=== PATIENT | male | born 1955 | race Caucasian/White ===

== ENCOUNTER 2017-08-05 07:14 | Emergency (ER) | payer BC ==
[2017-08-05 07:37] VITALS: BP 157/97
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
== END 2017-08-05 09:00 | disposition home or self-care (01) ==
LOC: UCEAST 07:14
DX: S20.219A Contusion of unspecified front wall of thorax, initial encounter (principal); M94.0 Chondrocostal junction syndrome [Tietze]; V27.4XXA Motorcycle driver injured in collision with fixed or stationary object in traffic accident, initial encounter; Y93.89 Activity, other specified; Y92.410 Unspecified street and highway as the place of occurrence of the external cause; I48.91 Unspecified atrial fibrillation; I10 Essential (primary) hypertension
CPT/HCPCS: 71020; 93005; 99211; G0463

== ENCOUNTER 2020-02-23 08:30 | Emergency (ER) | payer BC ==
--- OUTSIDE RECORDS SUMMARY | 2020-02-23 08:36 | XMS REPORT | Continuity of Care Document ---
:1955 External Reference #:[id number] Author Name Traveling ECHO 1 (transmitted by agent of provider Cele Ross) Address [address] [place] [id number] Care Team Providers Name Role Phone Celeste Witt MD - Family Care Team Information Collection Agent [phone] Medicine Geovani Teague MD - Cardiovascular Care Team Information Collection Agent Disease Problems Description No Information Available Social History Type Date Description Comments Sex Unknown Tobacco Use Start: Unknown End: Former Cigarette Smoker quit approx 30 Unknown years ago Smoking Status Reviewed: 02/03/20 Former Cigarette Smoker quit approx 30 years ago ETOH Use Drinks Alcoholic Beverages Occasionally Tobacco Use Start: Unknown End: Patient is a former Unknown smoker Recreational Drug Use Former Drug User Exercise Type/Frequency Exercises regularly Allergies, Adverse Reactions, Alerts Active Allergies Reaction Severity Comments Date Betapace blurred vision, QT 07/05/2015 increased Amlodipine swelling on 5 and 10 mg during 10/11/2015 hepatic dysfunction. Medications Active Medications SIG Qnty Indications Ordering Provider Date Irbesartan 2 tablets by 30tabs Geovani Epperson 07/08/2018 75mg Tablets mouth every day Alla Teague Eplerenone 1 and 1/2 by 45tabs I10 Geovani Epperson 10/16/2015 25mg Tablets mouth every day Alla Teague Amlodipine Besylate 1 by mouth every 30tabs Geovani Epperson 10/16/2015 day Alla Teague 2.5mg Tablets Aspirin 1 by mouth every Unknown 81mg Tablets DR day Immunizations Description No Information Available Vital Signs Date Vital Result Comment 02/17/2020 3:44pm Heart Rate 69 /min BP Systolic Sitting 154 mmHg Lue (Regular cuff) BP Diastolic Sitting 90 mmHg Lue (Regular cuff) BP Systolic Standing 150 mmHg BP Diastolic Standing 88 mmHg 02/03/2020 3:34pm Height 66 inches 5'6" Weight 163.00 lb with out shoes Heart Rate 70 /min BP Systolic Sitting 140 mmHg Lue reg cuff BP Diastolic Sitting 90 mmHg Lue reg cuff BP Systolic Standing 136 mmHg Lue reg cuff BP Diastolic Standing 88 mmHg Lue reg cuff Respiratory Rate 16 /min BMI (Body Mass Index) 26.3 kg/m2 Ejection Fraction 55-60% date 06/13/16 ECHO Results Test Acquired Date Facility Test Result H/L Range Note CBC Auto 01/22/2020 [facility] White Blood 4.4 10^3/uL Normal 3.5-10.[address] [place] [address] [phone] Red Blood Count 3.79 10^6/uL Low 4.18-5.48 Hemoglobin 12.8 g/dL Low 14.0-18.0 Hematocrit 38 % Low 42-52 Mean Corpuscular Volume 99 fL High 80-94 Mean Corpuscular Hemoglobin 34 pg High 27-31 Mean Corpuscular HGB Conc 34 g/dL Normal 31-36 Red Cell Distribution Width 12 % Normal 10-15 Platelet Count 167 10^3/uL Normal 150-450 Mean Platelet Volume 9.1 fL Normal 7.4-10.4 Abs Neutrophils 2.7 10^3/uL Normal 1.5-7.7 Abs Lymphocytes 0.9 10^3/uL Low 1.0-4.8 Abs Monocytes 0.7 10^3/uL Normal 0-0.8 Abs Eosinophils 0.1 10^3/uL Normal 0-0.6 Abs Basophils 0.0 10^3/uL Normal 0-0.2 Abs Nucleated RBC 0.0 10^3/uL Granulocyte % 60.8 % Lymphocyte % 20.5 % Monocyte % 15.9 % Eosinophil % 2.5 % Basophil % 0.3 % Nucleated Red Blood Cells % 0.0 Laboratory test 01/22/2020 [facility] Magnesium 2.3 mg/dL Normal 1.9-2.[address] [place] [address] [phone] Comp Metabolic 01/22/2020 [facility] Sodium 140 mmol/L Normal 135-[address] [place] [address] [phone] Potassium 3.8 mmol/L Normal 3.5-5.0 Chloride 108 mmol/L Normal 101-111 Co2 Carbon Dioxide 22 mmol/L Normal 22-32 Anion Gap 10 mmol/L Normal 2-11 Glucose 89 mg/dL Normal 70-100 Blood Urea Nitrogen 14 mg/dL Normal 6-24 Creatinine 1.01 mg/dL Normal 0.67-1.17 BUN/Creatinine Ratio 13.9 Normal 8-20 Calcium 9.0 mg/dL Normal 8.6-10.3 Total Protein 7.2 g/dL Normal 6.4-8.9 Albumin 4.5 g/dL Normal 3.2-5.2 Globulin 2.7 g/dL Normal 2-4 Albumin/Globulin Ratio 1.7 Normal 1-3 Total Bilirubin 0.60 mg/dL Normal 0.2-1.0 Alkaline Phosphatase 49 U/L Normal 34-104 Alt 23 U/L Normal 7-52 Ast 22 U/L Normal 13-39 Egfr Non- 74.9 >60 Egfr 90.6 >60 1 1 Because ethnic data is not always readily available, this report includes an eGFR for both -Americans and non- Americans. The National Kidney Disease Education Program (NKDEP) does not endorse the use of the MDRD equation for patients that are not between the ages of 18 and 70, are , have extremes of body size, muscle mass, or nutritional status, or are non- or non-. According to the National Kidney Foundation, irrespective of diagnosis, the stage of the disease is based on the level of kidney function: Stage Description GFR(mL/min/1.73 m(2)) 1 Kidney damage with normal or decreased GFR 90 2 Kidney damage with mild decrease in GFR 60-89 3 Moderate decrease in GFR 30-59 4 Severe decrease in GFR 15-29 5 Kidney failure <15 (or dialysis) Procedures Date Code Description Status 02/17/2020 37866 ECHO Transthoracic, Real-Time 2D With Doppler And Color Completed Flow 02/17/2020 03996 ECHO Transthoracic, Real-Time 2D With Doppler And Color Completed Flow 02/03/2020 26956 EKG Tracing & Interpretation Completed Medical Devices Description No Information Available Encounters Type Date Location Provider Dx Diagnosis Office Visit 02/03/2020 [facility] Sarai Cochran, I10 Essential ( 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 02/17/2020 I10 Essential (primary) hypertension Nurse Visit IC 02/17/2020 I71.2 Thoracic aortic aneurysm, without rupture Traveling ECHO 1 02/03/2020 I49.1 Atrial premature depolarization Geovani Teague M.D. 02/03/2020 I10 Essential (primary) hypertension Sarai SJil Cochran, N.P. 02/03/2020 I48.0 Paroxysmal atrial fibrillation Sarai Cochran, N.P. 02/03/2020 I49.1 Atrial premature depolarization Sarai Cochran, N.P. 02/03/2020 R00.2 Palpitations Sarai Cochran, N.P. 02/03/2020 I71.2 Thoracic aortic aneurysm, without rupture Sarai Cochran, N.P. Plan of Treatment No Information Available Functional Status Description No Information Available Mental Status Description No Information Available Referrals Description No Information Available
--- OUTSIDE RECORDS SUMMARY | 2020-02-23 08:36 | XMS REPORT | Continuity of Care Document ---
:1955 External Reference #:[id number] Author Name Sarai Cochran N.P. (transmitted by agent of provider Cele Ross) Address [address] [place] [address] Care Team Providers Name Role Phone Celeste Witt MD - Family Care Team Information Toddler Caregiver Medicine Geovani Teague MD - Cardiovascular Care Team Information Toddler Caregiver Disease Problems Description No Information Available Social [...] SIG Qnty Indications Ordering Provider Date Irbesartan 1 by mouth 30tabs Geovani Epperson 07/08/2018 75mg Tablets every day Alla Teague Eplerenone 1 and 1/2 by 135tabs I10 Geovani Epperson 10/16/2015 25mg Tablets mouth every day lAla Teague Amlodipine Besylate 1 by mouth 90tabs Geovani Epperson 10/16/2015 every day Alla Teague 2.5mg Tablets Aspirin 1 by mouth Unknown 81mg Tablets DR every day Immunizations Description No Information Available Vital Signs Date Vital Result Comment 02/03/2020 3:34pm Height 66 inches 5'6" Weight [...] kg/m2 Ejection Fraction 55-60% date 06/13/16 ECHO 10/09/2018 4:15pm Height 66 inches 5'6" Weight 160.00 lb Heart Rate 60 /min BP Systolic Sitting 150 mmHg lue lg cuff BP Diastolic Sitting 100 mmHg lue lg cuff BP Systolic Standing 158 mmHg la repeat sitting BP Diastolic Standing 94 mmHg la repeat sitting Respiratory Rate 16 /min BMI (Body Mass Index) 25.8 kg/m2 Ejection Fraction 55-60% 06/13/2016 echo Results Test Acquired Date Facility Test Result H/L Range Note CBC Auto 01/22/2020 [facility] White Blood 4.4 10^3/uL Normal 3.5-10.[address] [place], [place] [address] [phone] Red Blood Count 3.79 10^6/uL Low 4.18-5.48 [...] Blood Cells % 0.0 Laboratory test 01/22/2020 [facility] Magnesium 2.3 mg/dL Normal 1.9-2.[address] [place] [address] [phone] Comp Metabolic 01/22/2020 [facility] Sodium 140 mmol/L Normal 135-[address] [place] [address] [phone] Potassium 3.8 mmol/L Normal 3.5-5.0 Chloride 108 [...] (or dialysis) Procedures Date Code Description Status 02/03/2020 28878 EKG Tracing & Interpretation Completed Medical Devices Description No Information Available Encounters Type Date Location Provider Dx Diagnosis Office Visit 02/03/2020 [facility] Sarai Cochran, I10 Essential ( primary) 3:30p Of [facility] N.P. hypertension I48.0 Paroxysmal atrial fibrillation I49.1 Atrial premature depolarization R00.2 Palpitations I71.2 Thoracic aortic aneurysm, without rupture Assessments Date Code Description Provider 02/03/2020 I49.1 Atrial premature depolarization Geovani Teague M.D. 02/03/2020 I10 Essential (primary) hypertension Sarai Cochran, N.P. 02/03/2020 I48.0 Paroxysmal atrial fibrillation Sarai SJil Cochran, N.P. 02/03/2020 I49.1 Atrial premature depolarization Sarai S. Dimas, N.P. 02/03/2020 R00.2 Palpitations Sarai SJil Cochran, N.P. 02/03/2020 I71.2 Thoracic aortic aneurysm, without rupture Sarai Cochran, N.P. Plan of Treatment Future Appointment(s):02/17/2020 3:30 pm - Nurse Visit IC at [facility]02/17/2020 3:30 pm - Traveling ECHO 1 at [facility]2019 - Sarai Cochran, N.P.I10 Essential (primary) hypertensionFollow up: Schedule BP check in 2-3 weeks. w/ nurse OV 08/2020 JFMRecommendations:Check BP at homeI48.0 Paroxysmal atrial fibrillationRecommendations:You are in the regular stayywD90.1 Atrial premature srjahkzrpkdssjT32.2 VigcwgkmlabeT80.2 Thoracic aortic aneurysm, without ruptureNew Orders:Echocardiogram, Ordered: 04/19 Functional Status Description No Information Available Mental Status Description No Information Available Referrals Description No Information Available
--- OUTSIDE RECORDS SUMMARY | 2020-02-23 08:37 | XMS REPORT | Continuity of Care Document ---
:1955 External Reference #:[id number] Author Name Geovani Teague M.D. (transmitted by agent of provider Cele Ross) Address [address] [place] [id number] Care Team Providers Name Role Phone Celeste Witt MD - Family Care Team Information Furniture Associate Medicine Geovani Teague MD - Cardiovascular Care Team Information Furniture Associate Disease Problems Description No Information Available Social [...] Alla Teague Amlodipine Besylate 1 by mouth 90tabs [...] Result H/L Range Note CBC Auto 01/22/2020 [facility] White Blood 4.4 10^3/uL Normal 3.5-10.[address] [place] [address] [phone] Red Blood Count 3.79 10^6/uL Low 4.18-5.48 [...] Blood Cells % 0.0 Laboratory test 01/22/2020 [facility] Magnesium 2.3 mg/dL Normal 1.9-2.7 finding [address] [place] [address] [phone] Comp Metabolic 01/22/2020 [facility] Sodium 140 mmol/L Normal 135-145 Panel [address] [place] [address] [phone] Potassium 3.8 mmol/L Normal 3.5-5.0 Chloride 108 [...] dialysis) Procedures Date Code Description Status 02/03/2020 20745 EKG Tracing & Interpretation Completed Medical Devices Description No Information Available Encounters Type Date Location Provider Dx Diagnosis Office Visit 02/03/2020 [facility] Sarai Cochran, I10 Essential ( primary) 3:30p Of [facility] N.P. hypertension I48.0 Paroxysmal atrial fibrillation I49.1 Atrial premature depolarization R00.2 Palpitations I71.2 Thoracic aortic aneurysm, without rupture Assessments Date Code Description Provider 02/03/2020 I49.1 Atrial premature depolarization Geovani Teague M.D. 02/03/2020 I10 Essential (primary) hypertension Sarai Cochran, N.P. 02/03/2020 I48.0 Paroxysmal atrial fibrillation Sarai Jorge Cochran, N.P. 02/03/2020 I49.1 Atrial premature depolarization Sarai SJil Cochran, N.P. 02/03/2020 R00.2 Palpitations Sarai SJil Cochran, N.P. 02/03/2020 I71.2 Thoracic aortic aneurysm, without rupture Sarai Cochran, N.P. Plan of Treatment Future Appointment(s):02/17/2020 3:30 pm - [facility]17[facility] 3:30 pm - Traveling ECHO 1 at [facility]2019 - Sarai Cochran, N.P.I10 Essential (primary) hypertensionFollow up: Schedule BP check in 2-3 weeks. w/ nurse OV 08/2020 JFMRecommendations:Check BP at homeI48.0 Paroxysmal atrial fibrillationRecommendations:You are in the regular rpjoefZ45.1 Atrial premature jezwnwsgknlqebJ93.2 RpsrpqelyosaH70.2 Thoracic aortic aneurysm, without ruptureNew Orders:Echocardiogram, Ordered: 04/19 Functional Status Description No Information Available Mental Status Description No Information Available Referrals Description No Information Available
--- OUTSIDE RECORDS SUMMARY | 2020-02-23 08:37 | XMS REPORT | Continuity of Care Document ---
:1955 External Reference #:[id number] Author Name Sarai Cochran N.P. Address [address] [place] [address] Care Team Providers Name Role Phone Celeste Witt MD - Family Care Team Information Squaring Machine Operator Medicine Geovani Teague MD - Cardiovascular Care Team Information Squaring Machine Operator Disease Problems Description No Information Available Social [...] Result H/L Range Note CBC Auto 01/22/2020 [facility] White Blood 4.4 10^3/uL Normal 3.5-10.[address] [place] [address] [phone] Red Blood Count 3.79 10^6/uL Low 4.18-5.48 [...] Blood Cells % 0.0 Laboratory test 01/22/2020 [facility] Magnesium 2.3 mg/dL Normal 1.9-2.[address] [place] [address] [phone] Comp Metabolic 01/22/2020 [facility] Sodium 140 mmol/L Normal 135-145 Panel [address] [place] [address] [phone] Potassium 3.8 mmol/L Normal 3.5-5.0 Chloride 108 [...] dialysis) Procedures Date Code Description Status 02/03/2020 84528 EKG Tracing & Interpretation Completed Medical Devices Description No Information Available Encounters Type Date Location Provider Dx Diagnosis Office Visit 02/03/2020 [facility] Sarai Cochran, I10 Essential ( primary) 3:30p Of [facility] N.P. hypertension I48.0 Paroxysmal atrial fibrillation I49.1 Atrial premature depolarization R00.2 Palpitations I71.2 Thoracic aortic aneurysm, without rupture Assessments Date Code Description Provider 02/03/2020 I10 Essential (primary) hypertension Sarai Cochran, N.P. 02/03/2020 I48.0 Paroxysmal atrial fibrillation Sarai Cochran, N.P. 02/03/2020 I49.1 Atrial premature depolarization Sarai Cochran, N.P. 02/03/2020 R00.2 Palpitations Sarai Cochran, N.P. 02/03/2020 I71.2 Thoracic aortic aneurysm, without rupture Sarai Cochran, N.P. Plan of Treatment 02/03/2020 - Sarai Cochran, N.P.I10 Essential (primary) hypertensionFollow up: Schedule BP check in 2-3 weeks. w/ nurse OV 08/2020 JFMRecommendations:Check BP at homeI48.0 Paroxysmal atrial fibrillationRecommendations:You are in the regular yljltzJ62.1 Atrial premature jttyrqhclmcqwbM09.2 OsspyfjuaoqfK70.2 Thoracic aortic aneurysm, without ruptureNew Orders:Echocardiogram, Ordered: 04/19 Functional Status Description No Information Available Mental Status Description No Information Available Referrals Description No Information Available
[2020-02-23 08:55] VITALS: BP 146/100
[2020-02-23] MEDS ORDERED: Ibuprofen TAB* 600 MG PO ONE (09:25)
--- NOTE | 2020-02-23 09:38 | UC ---
Lower Extremity/Ankle HPI - HPI Summary HPI Summary: 64-year-old male comes in with a chief complaint of left knee and ankle pain. Patient slipped and fell last evening as he was walking down a grassy slope. His left knee and ankle folded back underneath him. He's had an ACL repair years ago. The knee did swell up. It's still swollen but that's improved. Has not felt it give out or clinic or lock however because his ankle pain he has not been able to try to bear any weight on the left leg. His ankle hurts more than the knee does. Pain is in the medial aspect of the ankle. Pain with any attempted weightbearing. Did feel a pop in the ankle when he fell. He's been using crutches to avoid weightbearing. - History of Current Complaint Chief Complaint: UCGeneralIllness Stated Complaint: L LEG INJURY Time Seen by Provider: 02/23/20 09:19 Pain Intensity: 8 - Allergies/Home Medications Allergies/Adverse Reactions: Allergies Allergy/AdvReac Type Severity Reaction Status Date / Time amlodipine Allergy Swelling Verified 02/23/20 08:43 Home Medications: Home Medications Atenolol TAB* [Tenormin TAB*] 25 mg PO DAILY 04/04/16 [History Confirmed ] Epleronone (NF) [Inspra (NF)] 25 mg PO DAILY 04/04/16 [History Confirmed ] Losartan TAB* [Cozaar TAB*] 50 mg PO BID 04/04/16 [History Confirmed 02/23/20] amLODIPine TAB* [Norvasc TAB*] 2.5 mg PO DAILY 04/04/16 [History Confirmed 02/22] Aspirin EC TAB* [Ecotrin EC Low Dose 81 MG*] 81 mg PO DAILY 02/23/20 [History Confirmed 02/23/20] Iron 90 mg PO DAILY 02/23/20 [History Confirmed 02/23/20] Potassium Chlor TAB* [Klor Con ER TAB*] 10 meq PO DAILY 02/23/20 [History Confirmed 02/23/20] PMH/Surg Hx/FS Hx/Imm Hx Previously Healthy: Yes Cardiovascular History: Hypertension - Surgical History Surgical History: Yes Surgery Procedure, Year, and Place: Fx Femur-1979. lower leg Fx-cast. cardiac ablation - Family History Known Family History: Positive: None, Diabetes, Other - POS: [place] - Social History Alcohol Use: Occasionally Alcohol Amount: 2-5 beers daily Substance Use Type: None Smoking Status (MU): Never Smoked Tobacco Have You Smoked in the Last Year: No - Immunization History Most Recent Influenza Vaccination: did not get Most Recent Tetanus Shot: unknown Most Recent Pneumonia Vaccination: no Review of Systems All Other Systems Reviewed And Are Negative: Yes Constitutional: Positive: Negative Skin: Positive: Negative Eyes: Positive: Negative ENT: Positive: Negative Respiratory: Positive: Negative Cardiovascular: Positive: Negative Gastrointestinal: Positive: Negative Motor: Positive: Other - see hpi Neurovascular: Positive: Negative Musculoskeletal: Positive: Other: - see hpi Neurological/Mental Status: Positive: Negative Psychological: Positive: Negative Is Patient Immunocompromised?: No Physical Exam Triage Information Reviewed: Yes Appearance: Well-Appearing, Well-Nourished, Pain Distress - mild with exam Vital Signs: Initial Vital Signs Temp 97.7 F 02/23/20 08:47 Pulse 87 02/23/20 08:47 Resp 18 02/23/20 08:47 BP 146/100 02/23/20 08:47 Pulse Ox 98 02/23/20 08:47 Vital Signs Reviewed: Yes Eye Exam: Normal Eyes: Positive: Conjunctiva Clear Neck: Positive: Supple Respiratory: Positive: No respiratory distress Musculoskeletal: Positive: Other: - Left knee has an effusion. He is tender to palpation in the posterior aspect. He is nontender on the lateral medial or anterior aspects. Is unable to perform a Arnoldo's because of the ankle pain. Left ankle is swollen and tender to palpation over the medial malleolus. Achilles tendon and lateral malleolus are nontender. Achilles tendon is intact. Normal capillary refill normal sensation and no tenderness in the rest of the foot. Neurological: Positive: Alert Psychological: Positive: Age Appropriate Behavior Skin Exam: Normal Lower Extremity Course/Dx - Course Course Of Treatment: Bail Bonding Agent: Giovanni Michael ([id number]) Transition Social Worker: VANESSA (VANESSA) Report Date: 02/23/2020 09:38:00 Report Status: Final Start of Report Content Patient Name: GT DALY Medical Record#: [id number] Ordering Physician: Master Milton MD Acct.#: [id number] : Age: 64 Sex: M Location: [facility] Exam Date: 02/23/20856 ADM Status: REG ER Order Information: KNEE LEFT 4+ VWS Accession Number: [id number] CPT: 05650 INDICATION: Left knee injury. TECHNIQUE: 4 views of the left knee were obtained. FINDINGS: There is a moderately sized effusion. The bones are osteopenic. A nondisplaced lucency extends from approximately the tibial spine to the medial proximal tibial shaft. There is moderate tricompartmental osteoarthropathy. Anatomic alignment is maintained. IMPRESSION : 1. Moderate joint effusion with a nondisplaced lucency extending from the tibial spine to the proximal medial tibial shaft. This would be better evaluated by CT. 2. Osteopenia. <Electronically signed by Giovanni Michael MD in OV> 02/23/20933 Dictated By: Giovanni Michael MD Dictated Date/Time: 02/23/20930 Transcribed Date/ Time: 02/23/20930 Copy to: CC:JENNY Bender; Master Milton MD Imaging - [facility] - [facility] - [facility] [address] [address] ph ([phone]) ph ([phone]) ph ([phone]) End of Report Content ========= Bail Bonding Agent: Morris Liu Daniel, ([id number]) Transition Social Worker: VANESSA ( NUANCE) Report Date: 02/23/2020 09:35:00 Report Status: Final ====== Start of Report Content Patient Name: GT DALY Medical Record#: [id number] Ordering Physician: Master Milton MD Acct.#: [id number] : Age: 64 Sex: M Location: [facility] Exam Date: 02/23/20856 ADM Status: [facility] ER Order Information: ANKLE LEFT 3+VWS Accession Number: [id number] CPT: 37036 HISTORY: pain s/p fall . COMPARISONS: None relevant available at the time of dictation. VIEWS: 3, Frontal, lateral, and oblique views of the left ankle FINDINGS: BONE DENSITY: There is diffuse osteopenia. BONES: There is a transverse nondisplaced fracture of the medial malleolus with articular extension. There are posterior and plantar calcaneal enthesophytes. JOINTS: There is osteoarthritis of the tibiotalar and fibulotalar articulations. ALIGNMENT: There is no dislocation. SOFT TISSUES: Unremarkable. OTHER FINDINGS: None. IMPRESSION: TRANSVERSE NONDISPLACED FRACTURE OF THE MEDIAL MALLEOLUS. OSTEOPENIA. <Electronically signed by Morris Liu MD in OV> 02/23/2031 Dictated By: Morris Liu MD Dictated Date/Time: 02/23/20930 Transcribed Date/Time: 02/23/20930 Copy to: CC:JENNY Bender; Master Milton MD Imaging - [facility] - [facility] - [facility] [id number] [place] [id number] [place] [address] ph ([phone]) ph ([phone]) ph ([phone]) End of Report Content Bail Bonding Agent: Von Johnston C ([id number]) Transition Social Worker: VANESSA ( KIMBERANCE) Report Date: 02/23/2020 10:27:00 Report Status: Final ====== Start of Report Content Patient Name: GT DALY Medical Record#: [id number] Ordering Physician: Master Milton MD Acct.#: [id number] : Age: 64 Sex: M Location: [facility] Exam Date: 02/23/20943 ADM Status: REG ER Order Information: CT EXTREMITY LOWER LEFT WO Accession Number: [id number] CPT: 90316 Indication: LEFT knee pain both anterior and posterior post fall last night. Remote prior femur and patella fracture. Comparison: February 23, 2020 radiographs. Technique: Noncontrast CT LEFT knee. Multiplanar reformation. REPORT AND IMPRESSION: #. Small suprapatellar joint effusion. Negative for fat fluid level. Chronic smooth margined osseous loose body at the popliteus tendon sheath. #. Normal articular alignment. #. Negative for fracture. Lucency at the proximal tibia noted on radiographs corresponds with normal fat muscle fascia interface at the lateral margin of the medial head of the gastrocnemius based on correlation with CT. #. Tricompartmental osteoarthritis. Advanced joint space narrowing at the medial joint compartment and partial flattening of the femoral-tibial articular surfaces. Associated subchondral sclerosis and cystic change. #. Tract from previous intramedullary damien at the visualized distal femur. #. Soft tissue swelling superficial to the patellar tendon. < Electronically signed by Von Johnston MD in OV> 02/23/20 1023 Dictated By: Von Johnston MD Dictated Date/Time: 02/23/20 1013 Transcribed Date/Time: 1013 Copy to: CC:JENNY Bender; Master Milton MD Imaging - [facility] - [facility] - [facility] [address] [address] ph ([phone]) ph ([phone]) ph ([phone]) ===== End of Report Content I discussed the x-rays and the CT with the patient. No fracture seen in the knee. Discussed the patient with orthopedics and they can see him now. Jose J wrap was placed by nursing patient neurovascular intact after placement of the Jose J wrap. Patient has crutches and I instructed him to their no weight on the ankle and to go directly to orthopedics now. - Differential Dx/Diagnosis Provider Diagnosis: Ankle fracture, left, Effusion, left knee Discharge ED - Sign-Out/Discharge Documenting (check all that apply): Patient Departure All imaging exams completed and their final reports reviewed: Yes - Discharge Plan Condition: Stable Disposition: HOME Patient Education Materials: Ankle Fracture (ED), Swollen Knee Joint (ED) Referrals: Sarah Dodd PA [Primary Care Provider] - Junaid Olsen MD [Medical Doctor] - Additional Instructions: FOLLOW UP WITH DR OLSEN, ORTHOPEDICS, NOW. YOUR LEFT ANKLE IS FRACTURED. DO NOT PLACE ANY WEIGHT ON YOUR LEFT LEG. GET REEVALUATED IF NOT IMPROVED OR WORSE OR ANY QUESTIONS OR CONCERNS. - Billing Disposition and Condition Condition: STABLE Disposition: Home
== END 2020-02-23 10:55 | disposition home or self-care (01) ==
LOC: UCEAST 08:30
DX: S82.55XA Nondisplaced fracture of medial malleolus of left tibia, initial encounter for closed fracture (principal); M25.462 Effusion, left knee; M17.12 Unilateral primary osteoarthritis, left knee; M85.862 Other specified disorders of bone density and structure, left lower leg; W01.0XXA Fall on same level from slipping, tripping and stumbling without subsequent striking against object, initial encounter; Y93.01 Activity, walking, marching and hiking; Y92.828 Other wilderness area as the place of occurrence of the external cause; I10 Essential (primary) hypertension; Z79.899 Other long term (current) drug therapy; Z88.8 Allergy status to other drugs, medicaments and biological substances
CPT/HCPCS: 99212; A9270-GY; G0463